=== PATIENT | female | born 1985 | race Two or more races ===

== ENCOUNTER 2020-11-10 17:13 | Emergency (ER) | payer OTHER ==
[~2020-11-10] VITALS: Ht 152.4 cm; Wt 63.5 kg
[2020-11-10] MEDS ORDERED: BUPROPION HCL200 M1 PO (17:22)
== END 2020-11-10 20:16 | disposition home or self-care (01) ==
LOC: ER 17:13
DX: N39.0 Urinary tract infection, site not specified (principal)

== ENCOUNTER 2020-11-12 08:36 | Emergency (ER) | payer OTHER ==
[~2020-11-12] VITALS: Ht 160 cm; Wt 63.5 kg
[~2020-11-12 08:36] MED LIST: BUPROPION HCL200 M1 PO
== END 2020-11-12 13:19 | disposition home or self-care (01) ==
LOC: ER 08:36
DX: R31.0 Gross hematuria (principal); N39.0 Urinary tract infection, site not specified; R10.84 Generalized abdominal pain; N94.6 Dysmenorrhea, unspecified

== ENCOUNTER 2021-05-22 08:00 | Outpatient (CLI) | payer OTHER | END 2021-05-22 08:30 | disposition home or self-care (01) | LOC: PPH VACUNA 08:00 | PROVIDERS: ATTEND Emergency Medicine Pediatric Emergency Medicine | DX: Z23 Encounter for immunization (principal) ==

== ENCOUNTER 2021-06-27 15:31 | Outpatient (CLI) | payer OTHER | END 2021-06-27 16:24 | disposition home or self-care (01) | LOC: ASH CLINIC 15:31 | PROVIDERS: ATTEND Emergency Medicine | DX: U07.1 COVID-19 (principal); Z23 Encounter for immunization ==

== ENCOUNTER → 2021-11-17 | Emergency (ER) | payer OTHER ==
[~2021-11-17] VITALS: Ht 160 cm; Wt 63.5 kg
== END | disposition home or self-care (01) ==
LOC: ER 09:50
DX: B27.99 Infectious mononucleosis, unspecified with other complication (principal); B17.8 Other specified acute viral hepatitis; J06.9 Acute upper respiratory infection, unspecified

== ENCOUNTER 2022-03-04 08:15 | Outpatient (CLI) | payer OTHER | END 2022-03-04 08:16 | disposition home or self-care (01) | LOC: RX STUDY 08:15 | PROVIDERS: ATTEND Specialist | DX: N93.8 Other specified abnormal uterine and vaginal bleeding (principal) ==

== ENCOUNTER 2023-04-13 10:54 | Inpatient (IN) | payer OTHER ==
[~2023-04-13] VITALS: Ht 160 cm; Wt 3.2 kg
[2023-04-13] MEDS ORDERED: PRENATABS RX T1 EACH PO (11:17)
[2023-04-13 12:12] LABS: INR < 0.93; PARTIAL THROMBOPLASTIN TIME 27.6 SECONDS (22.0-34.0); PROTHROMBIN TIME 9.8 SECONDS (9.0-11.5)
[2023-04-13 12:14] LABS: ALBUMIN 2.6 gm/dL (3.4-5.0); BILIRUBIN TOTAL 0.43 mg/dL (0.3-1.2); CALCIUM 8.5 mg/dL (8.5-10.1); CREATININE SERUM 0.33 mg/dL (0.55-1.02); GFR 221.86; GLOBULINA 2.9 G/DL (2.4-3.5); POTASSIUM 3.26 mEq/L (3.5-5.1); TOTAL PROTEIN 5.5 gm/dL (6.4-8.2)
[2023-04-22 08:01] LABS: HEMATOCRIT 33.2 % (36.0-45.00); HEMOGLOBIN 11.3 g/dL (12.0-15.00); MEAN CELL VOLUME 89.5 fL (80.00-100.00); MEAN CORPUSCULAR HEMOGLOBIN 30.4 pg (27.00-32.0); RED BLOOD COUNT 3.71 M/uL (4.00-6.00); RED CELL DISTRIBUTION WIDTH 14.3 % (11.5-14.5)
[2023-04-22 08:27] LABS: PLATELET COUNT 123 K/uL (150-450)
== END 2023-04-24 12:05 | disposition home or self-care (01) | DRG 785 ==
LOC: LDR 04-21 11:30 → O/R 04-21 12:34 → OB/GYN 04-21 12:34 → LDR 04-21 15:35 → OB/GYN 04-21 18:33
PROVIDERS: Obstetrics & Gynecology; ADMIT Obstetrics & Gynecology Gynecology; ATTEND Obstetrics & Gynecology Gynecology
PROC: 0UB70ZZ Excision of Bilateral Fallopian Tubes, Open Approach (ICD-10-PCS; 2023-04-21)
PROC: 4A1HXCZ Monitoring of Products of Conception, Cardiac Rate, External Approach (ICD-10-PCS; 2023-04-21)
PROC: 10D00Z1 Extraction of Products of Conception, Low, Open Approach (ICD-10-PCS; principal; 2023-04-21 15:35)
DX: O34.211 Maternal care for low transverse scar from previous cesarean delivery (principal); Z30.2 Encounter for sterilization; Z37.0 Single live birth; Z20.822 Contact with and (suspected) exposure to COVID-19; Z3A.38 38 weeks gestation of pregnancy